=== PATIENT | female | born 1990 | race Caucasian/White ===

== ENCOUNTER 2016-12-17 21:49 | Outpatient (CLI) | payer OTHER | END 2016-12-17 21:50 | disposition critical access hospital (66) | LOC: EMS 21:49 | PROVIDERS: ATTEND Surgery | DX: R06.02 Shortness of breath (principal); R55 Syncope and collapse; R07.9 Chest pain, unspecified; R11.2 Nausea with vomiting, unspecified | CPT/HCPCS: A0425; A0429 ==

== ENCOUNTER 2016-12-17 22:09 | Emergency (ER) | payer OTHER ==
[2016-12-17] MEDS ORDERED: SODIUM CHLORIDE 0.9% 1,000 ML IV ONE (22:26)
[2016-12-17] MEDS ORDERED: LORazepam 2 MG/ML SYRINGE IVP STA (22:26)
--- NOTE | 2016-12-17 22:28 | ED Physician Documentation ---
PD HPI CHEST PAIN - Stated complaint Stated Complaint: SOA - Chief complaint Chief Complaint: General - History obtained from History obtained from: Patient, Family - History of Present Illness Timing - onset: How many hours ago (1) Timing - onset during: Rest Timing - duration: Hours (1) Timing - details: Abrupt onset Pain level max: 7 Pain level now: 7 Quality: Tightness, Sharp, Pain Location: Left chest Radiation: Other (non-radiating) Improved by: Nothing Worsened by: Inspiration Associated symptoms: Shortness of air, Diaphoresis, Feeling faint / dizzy, General Weakness. No: Nausea, Vomiting, Palpitations, Cough Similar symptoms before: Has not had sx before Recently seen: Clinic (being treated for a calf strain. Is on control. No immobilization or recent travel) Review of Systems Ten Systems: 10 systems reviewed and negative Constitutional: denies: Fever, Chills Nose: denies: Rhinorrhea / runny nose, Congestion Throat: denies: Sore throat Cardiac: reports: Chest pain / pressure Respiratory: reports: Dyspnea. denies: Cough, Hemoptysis GI: denies: Abdominal Pain, Nausea, Vomiting, Diarrhea : denies: Now EGA Skin: denies: Rash Musculoskeletal: denies: Neck pain, Back pain Neurologic: denies: Syncope, Headache PD PAST MEDICAL HISTORY - Past Medical History Past Medical History: No - Past Surgical History Past Surgical History: Yes Ortho: Spine surgery - Allergies Allergies/Adverse Reactions: Allergies Allergy/AdvReac Type Severity Reaction Status Date / Time morphine AdvReac Itching Verified 12/17/16 22:14 Penicillins AdvReac Itching Verified 12/17/16 22:14 - Social History Does the pt smoke?: No Smoking Status: Never smoker Does the pt drink ETOH?: Yes ETOH Use: Wine Does the pt have substance abuse?: No - Immunizations Immunizations are current?: No - POLST Patient has POLST: No PD ED PE NORMAL - Vitals Vital signs reviewed: Yes - General General: Alert and oriented X 3, Well developed/nourished - HEENT HEENT: PERRL, Moist mucous membranes - Neck Neck: Supple, no meningeal sign - Cardiac Cardiac: Other (tachycardic) - Respiratory Respiratory: No respiratory distress, Clear bilaterally - Abdomen Abdomen: Soft, Non tender, Non distended - Back Back: No spinal TTP - Derm Derm: Warm and dry, No rash - Extremities Extremities: Other (R calf tenderness.) - Neuro Neuro: Alert and oriented X 3 - Psych Psych: Normal mood, Normal affect Results - Vitals Vitals: Vital Signs - 24 hr 12/17/16 12/17/16 12/17/16 22:11 22:26 22:31 Temperature 36.0 C L Heart Rate 115 H 120 H Respiratory 20 23 Rate Blood Pressure 157/88 H 108/93 H O2 Saturation 96 94 12/17/16 12/17/16 12/18/16 23:28 23:45 00:49 Temperature Heart Rate 122 H 120 H 124 H Respiratory 25 H 20 21 Rate Blood Pressure 136/74 H 131/71 H 132/97 H O2 Saturation 95 96 98 12/18/16 00:53 Temperature 36.8 C Heart Rate 124 H Respiratory 18 Rate Blood Pressure 132/97 H O2 Saturation 97 Oxygen O2 Source Nasal cannula - EKG (time done) 2221 Rate: Rate (enter#) (115) Rhythm: Sinus tachycardia [place]: Normal Intervals: Normal [place] QRS: Normal Ischemia: Non specific changes Computer interpretation: Agree with computer - Labs Labs: Laboratory Tests 12/17/16 12/17/16 12/17/16 22:54 22:54 22:54 WBC 16.1 H RBC 4.25 Hgb 11.6 L Hct 36.1 L MCV 84.8 MCH 27.2 MCHC 32.1 RDW 14.6 Plt Count 286 MPV 8.2 Neut # 11.0 H Lymph # 3.9 H [place] # 0.8 Eos # 0.3 Baso # 0.1 Absolute Nucleated RBC 0.01 Nucleated RBCs 0.0 PT INR APTT Sodium 141 Potassium 3.5 Chloride 109 Carbon Dioxide 21 Anion Gap 11.0 BUN 11 Creatinine 0.7 Estimated GFR (MDRD) 101 Glucose 134 H Calcium 8.9 Total Bilirubin < 0.2 L AST 19 ALT 23 Alkaline Phosphatase 66 Troponin I 0.26 Total Protein 7.5 Albumin 3.5 Globulin 4.0 Albumin/Globulin Ratio 0.9 L Lipase 27 Serum HCG, Qual 12/17/16 12/17/16 22:54 22:54 WBC RBC Hgb Hct MCV MCH MCHC RDW Plt Count MPV Neut # Lymph # [place] # Eos # Baso # Absolute Nucleated RBC Nucleated RBCs PT 12.3 INR 1.1 APTT 22.6 L Sodium Potassium Chloride Carbon Dioxide Anion Gap BUN Creatinine Estimated GFR (MDRD) Glucose Calcium Total Bilirubin AST ALT Alkaline Phosphatase Troponin I Total Protein Albumin Globulin Albumin/Globulin Ratio Lipase Serum HCG, Qual NEGATIVE - Rads (name of study) CT pulmonary angiogram Radiology: Prelim report reviewed, EMP read contemporaneously, See rad report ( Large saddle embolus extending into all lobes of both lungs. Right heart strain. Suspect left thyroid nodule, somewhat poorly seen due to streak artifact. Recommend nonemergent sonographic follow-up.) PD MEDICAL DECISION MAKING - ED course Complexity details: reviewed results, re-evaluated patient, considered differential, d/w patient, d/w family, d/w sap ppm consultant ED course: Patient is a 26-year-old female who presents to the emergency department with difficulty breathing. Found to have a large saddle embolus. It involves all lobes of the lung. She was started on a heparin drip. Contacted Dr. Gamez, ICU at [facility] in [place] who graciously accepts in transfer. Patient was started on a heparin drip after a heparin bolus. She has no history of immobilization, recent travel or surgery. No family history of clotting disorders. She is on control, but does not smoke. Had been recently diagnosed with a calf strain of the right lower extremity 3 days ago. Likely that this represented a deep venous thrombosis. This document was made in part using voice recognition software. While efforts are made to proofread this document, sound alike and grammatical errors may occur. Departure - Departure Disposition: 02 Transfer Acute Care Hosp Clinical Impression: Sinus tachycardia, Hypoxia Pulmonary embolism Qualifiers: Pulmonary embolism type: saddle Chronicity: acute Acute cor pulmonale presence : with acute cor pulmonale Qualified Code(s): I26.02 - Saddle embolus of pulmonary artery with acute cor pulmonale Condition: Stable
[2016-12-17] MEDS ORDERED: LORazepam 2 MG/ML SYRINGE ONE (22:49)
[2016-12-17 23:06] LABS: BASOPHILS # (AUTO) 0.1 10^3/uL (0.0-0.1); BASOPHILS % (AUTO) 0.8 %; EOSINOPHILS # (AUTO) 0.3 10^3/uL (0.0-0.7); EOSINOPHILS % (AUTO) 1.7 %; HCT - HEMATOCRIT 36.1 % (37.0-47.0); HGB - HEMOGLOBIN 11.6 g/dL (12.0-16.0); LYMPHOCYTES # (AUTO) 3.9 10^3/uL (1.5-3.5); LYMPHOCYTES % (AUTO) 24.2 %; MEAN CORPUSCULAR HEMOGLOBIN 27.2 pg (27.0-31.0); MEAN CORPUSCULAR HGB CONC 32.1 g/dL (32.0-36.0); MEAN CORPUSCULAR VOLUME 84.8 fL (81.0-99.0); MEAN PLATELET VOLUME 8.2 fL (7.9-10.8); MONOCYTES # (AUTO) 0.8 10^3/uL (0.0-1.0); MONOCYTES % (AUTO) 4.8 %; NEUTROPHILS % (AUTO) 68.5 %; RED BLOOD COUNT 4.25 10^6/uL (4.20-5.40); RED CELL DISTRIBUTION WIDTH 14.6 % (12.0-15.0); UNCORRECTED WHITE BLOOD COUNT 16.1 x10^3/uL; WHITE BLOOD COUNT 16.1 x10^3/uL (4.8-10.8)
[2016-12-17 23:19] LABS: ALBUMIN/GLOBULIN RATIO 0.9 (1.0-2.2); BILIRUBIN,TOTAL < 0.2 mg/dL (0.2-1.0); BUN - BLOOD UREA NITROGEN 11 mg/dL (6-20); CALCIUM 8.9 mg/dL (8.5-10.3); CARBON DIOXIDE - CO2 21 mmol/L (21-32); CHLORIDE 109 mmol/L (101-111); CREATININE 0.7 mg/dL (0.4-1.0); GFR - MDRD 101 (>89); GLUCOSE 134 mg/dL (70-100); LIPASE 27 U/L (22-51); POTASSIUM 3.5 mmol/L (3.5-5.0); SODIUM 141 mmol/L (135-145); TOTAL PROTEIN 7.5 g/dL (6.7-8.2)
[2016-12-17] MEDS ORDERED: IOPAMIDOL-300 100 ML VIAL IVP ONE (23:36)
[2016-12-17] MEDS ORDERED: HEPARIN 5,000 UNIT/ML VIAL IVP ONE (23:38)
[2016-12-17] MEDS ORDERED: HEPARIN 25,000 UNITS/500 ML 500 ML IV STA (23:38)
--- NOTE | 2016-12-17 23:59 | CT Preliminary Report ---
Exam: CT Chest Angio (PE) IMPRESSION: 1. Large saddle embolus extending into all lobes of both lungs. 2. Right heart strain. 3. Suspect left thyroid nodule, somewhat poorly seen due to streak artifact. Recommend nonemergent so nographic follow-up. YASHA The above critical findings were discussed with Dr. Augustin by Dr. Haja Sheikh at 23:55 hrs on 12/17. SITE ID: [id number]
[2016-12-18] MEDS ORDERED: HEPARIN 25,000 UNITS/500 ML 500 ML IV ONE (00:01)
[2016-12-18] MEDS ORDERED: HEPARIN 5,000 UNIT/ML VIAL ONE (00:01)
--- NOTE | 2016-12-18 00:01 | CT Report ---
EXAM: CT ANGIOGRAM CHEST EXAM DATE: 12/17/2016 11:42 PM. CLINICAL HISTORY: Left chest pain and shortness of breath. COMPARISON: None. TECHNIQUE: Routine helical imaging was performed through the chest in the pulmonary arterial phase. I V Contrast: Nonionic. Reconstructions: Coronal 3-D MIP reconstructions.Sagittal and coronal. In accordance with CT protocol optimization, one or more of the following dose reduction techniques w ere utilized for this exam: automated exposure control, adjustment of mA and/or KV based on patient s ize, or use of iterative reconstructive technique. FINDINGS: Pulmonary Arteries: Diagnostic quality: Adequate through the segmental arteries. Large saddle embolus extending into all lobes of both lungs. Dilatation of the right ventricle with bowing of the interventricular septum toward the left, consist ent with right heart strain. Lungs/Pleura: No alveolar consolidation or pleural effusion. No pneumothorax. Mediastinum: Heart size is normal to upper normal. No lymphadenopathy seen. Thoracic Aorta: Unremarkable. Upper Abdomen: Fatty liver. Other: Enlarged left thyroid lobe with suspected nodule, but suboptimally seen due to streak artifact from spinal hardware. This measures approximately 2.5 x 2.1 cm. Recommend nonemergent sonographic fo llow-up. Scoliosis with extensive posterior metallic fusion in the spine. IMPRESSION: 1. Large saddle embolus extending into all lobes of both lungs. 2. Right heart strain. 3. Suspect left thyroid nodule, somewhat poorly seen due to streak artifact. Recommend nonemergent so nographic follow-up. RADIA The above critical findings were discussed with Dr. Augustin by Dr. Haja Sheikh at 23:55 hrs on 12/17. Referring Provider Line: [phone] SITE ID: [id number]
[2016-12-18 00:31] LABS: INR 1.1 (0.8-1.2); PT - PROTHROMBIN TIME 12.3 secs (9.9-12.6)
[2016-12-18 00:38] LABS: PARTIAL THROMBOPLASTIN TIME 22.6 secs (24.9-33.3)
[2016-12-18] MEDS ORDERED: LORazepam 2 MG/ML SYRINGE IVP STA (00:55)
[2016-12-18] MEDS ORDERED: LORazepam 2 MG/ML SYRINGE ONE (00:58)
[2016-12-18 02:14] VITALS: BP 135/86
[2016-12-18 02:36] LABS: BILIRUBIN,URINE NEGATIVE (NEGATIVE); PH,URINE 6.5 PH (5.0-7.5)
[2016-12-18 02:43] LABS: UA CHARGE (STRIP ONLY) YES; UR CULTURE IF IND NOT INDICATED
== END 2016-12-18 02:06 | disposition short-term general hospital (02) ==
LOC: EDUNIT# → ED 22:09 → SUPCPDRO 22:09 → ED 12-18 02:06
DX: I26.02 Saddle embolus of pulmonary artery with acute cor pulmonale (principal); R09.02 Hypoxemia; R00.0 Tachycardia, unspecified
CPT/HCPCS: 36415; 71275; 80053; 81003; 81241; 83690; 84484; 84703; 85025; 85303; 85610; 85730; 93005; 96361; 96365; 96366; 96375; 96376; 99285; J2060; Q9967; 81001; 87086

== ENCOUNTER 2016-12-18 01:51 | Outpatient (CLI) | payer OTHER | END 2016-12-18 01:52 | disposition short-term general hospital (02) | LOC: EMS 01:51 | PROVIDERS: ATTEND Surgery | DX: R06.02 Shortness of breath (principal) | CPT/HCPCS: A0425; A0426 ==

== ENCOUNTER 2017-01-10 16:02 | Outpatient (CLI) | payer OTHER | END 2017-01-10 16:03 | disposition short-term general hospital (02) | LOC: EMS 16:02 | PROVIDERS: ATTEND Surgery | DX: R07.9 Chest pain, unspecified (principal) | CPT/HCPCS: A0170; A0425; A0427 ==

== ENCOUNTER 2017-06-06 15:51 | Emergency (ER) | payer OTHER ==
--- NOTE | 2017-06-06 16:24 | ED Physician Documentation ---
PD HPI CHEST PAIN - Stated complaint Stated Complaint: SOA/HEART RACE - Chief complaint Chief Complaint: Resp - History obtained from History obtained from: Patient - History of Present Illness Timing - onset: Other (26-year-old woman with history of control related PE this year, otherwise was without identifiable cause and she says genetic testing for hypercoagulable states was negative. She was sent to [place] where per her description she had catheter guided TPA. Today about 45 minutes ago she developed intermittent palpitations like a brief rapid heartbeat lasting 10 seconds, was happening quite frequently and there was mild shortness of breath with it. She is now asymptomatic.) Review of Systems Constitutional: denies: Fever, Chills Nose: denies: Rhinorrhea / runny nose, Congestion Cardiac: reports: Chest pain / pressure, Palpitations. denies: Pedal edema, Calf pain Respiratory: reports: Dyspnea. denies: Cough PD PAST MEDICAL HISTORY - Past Surgical History Past Surgical History: Yes Ortho: Spine surgery - Present Medications Home Medications: Ambulatory Orders Medication Instructions Recorded Confirmed Cholecalciferol (Vitamin D3) 2,000 unit PO 06/06/17 [Vitamin D] Folic Acid 500mg 06/06/17 Magnesium Oxide 400 mg PO BID #60 tablet 06/06/17 Omeprazole [PriLOSEC] 10 mg PO DAILY 06/06/17 06/06/17 - Allergies Allergies/Adverse Reactions: Allergies Allergy/AdvReac Type Severity Reaction Status Date / Time morphine AdvReac Itching Verified 06/06/17 16:12 Penicillins AdvReac Itching Verified 06/06/17 16:12 - Social History Does the pt smoke?: No Smoking Status: Never smoker Does the pt drink ETOH?: Yes Does the pt have substance abuse?: No - Immunizations Immunizations are current?: No - POLST Patient has POLST: No PD ED PE NORMAL - Vitals Vital signs reviewed: Yes - General General: Alert and oriented X 3, No acute distress - Neck Neck: Supple, no meningeal sign, No bony TTP - Cardiac Cardiac: RRR, No murmur - Respiratory Respiratory: No respiratory distress, Clear bilaterally - Abdomen Abdomen: Normal bowel sounds, Soft, Non tender - Extremities Extremities: No edema, No calf tenderness / cord - Neuro Neuro: Alert and oriented X 3, Normal speech - Psych Psych: Normal mood, Normal affect Results - Vitals Vitals: Vital Signs - 24 hr 06/06/17 16:05 Temperature 36.9 C Heart Rate 73 Respiratory 16 Rate Blood Pressure 137/68 H O2 Saturation 95 Oxygen O2 Source Room air - EKG (time done) 1610 Rate: Rate (enter#) (83) Rhythm: NSR [place]: Normal Intervals: Normal [place] QRS: Normal Ischemia: Non specific changes (mild inferior RAE) Computer interpretation: Agree with computer - Labs Labs: Laboratory Tests 06/06/17 06/06/17 06/06/17 16:30 16:30 16:30 WBC 10.1 RBC 4.81 Hgb 12.7 Hct 39.1 MCV 81.2 MCH 26.4 L MCHC 32.5 RDW 16.6 H Plt Count 332 MPV 7.9 Neut # 5.3 Lymph # 3.8 H [place] # 0.7 Eos # 0.2 Baso # 0.1 Absolute Nucleated RBC 0.00 Nucleated RBC % 0.0 Sodium 138 Potassium 3.8 Chloride 105 Carbon Dioxide 23 Anion Gap 10.0 BUN 11 Creatinine 0.6 Estimated GFR (MDRD) 121 Glucose 79 Calcium 9.5 Total Bilirubin 0.6 AST 32 ALT 50 Alkaline Phosphatase 61 Troponin I < 0.04 Total Protein 8.1 Albumin 3.9 Globulin 4.2 Albumin/Globulin Ratio 0.9 L Lipase 26 Serum HCG, Qual Urine Color Urine Clarity Urine pH Ur Specific [place] Urine Protein Urine Glucose (UA) Urine Ketones Urine Occult Blood Urine Nitrite Urine Bilirubin Urine Urobilinogen Ur Leukocyte Esterase Ur Microscopic Review Urine Culture Comments 06/06/17 06/06/17 16:30 18:00 WBC RBC Hgb Hct MCV MCH MCHC RDW Plt Count MPV Neut # Lymph # [place] # Eos # Baso # Absolute Nucleated RBC Nucleated RBC % Sodium Potassium Chloride Carbon Dioxide Anion Gap BUN Creatinine Estimated GFR (MDRD) Glucose Calcium Total Bilirubin AST ALT Alkaline Phosphatase Troponin I Total Protein Albumin Globulin Albumin/Globulin Ratio Lipase Serum HCG, Qual NEGATIVE Urine Color YELLOW Urine Clarity CLEAR Urine pH 7.0 Ur Specific [place] <=1.005 Urine Protein NEGATIVE Urine Glucose (UA) NEGATIVE Urine Ketones NEGATIVE Urine Occult Blood NEGATIVE Urine Nitrite NEGATIVE Urine Bilirubin NEGATIVE Urine Urobilinogen 0.2 (NORMAL) Ur Leukocyte Esterase NEGATIVE Ur Microscopic Review NOT INDICATED Urine Culture Comments NOT INDICATED - Rads (name of study) CT Angio chest Radiology: EMP read contemporaneously (No large PE, fatty liver, chronic and incidental findings.) PD MEDICAL DECISION MAKING - ED course ED course: 26-year-old woman with palpitations, the history is most consistent with PVCs, given the history of PE a workup was begun for this and was grossly negative. While she was being observed in the emergency department she did have symptomatic PVCs on the monitor which matched her symptoms. Departure - Departure Disposition: 01 Home, Self Care Clinical Impression: PVCs (premature ventricular contractions) Chest pain Qualifiers: Chest pain type: unspecified Qualified Code(s): R07.9 - Chest pain, unspecified Condition: Good Record reviewed to determine appropriate education?: Yes Instructions: Premature Ventricular Contract About Prescriptions: Magnesium Oxide 400 mg PO BID #60 tablet Comments: Follow-up with your doctor, let him/her know that your EKG was unremarkable as was the CT of your chest. Your labs were okay 2. While being observed in the emergency department she had premature ventricular contractions, sometimes a few in a minute, but never back to back. These matched your symptoms. We are treating it today with magnesium supplementation. If this is not helpful you can talk to your doctor about a beta-allen. Return if worse. Your blood pressure was elevated today on check into the emergency department. This does not mean that you have hypertension, it is a common phenomenon to come to the emergency department and have elevated blood pressure. I recommend that you see your primary care physician within the week to have it rechecked when you are feeling better.
[2017-06-06] MEDS ORDERED: IOPAMIDOL-300 100 ML VIAL ONE (16:43)
[2017-06-06 16:46] LABS: BASOPHILS # (AUTO) 0.1 10^3/uL (0.0-0.1); EOSINOPHILS # (AUTO) 0.2 10^3/uL (0.0-0.7); EOSINOPHILS % (AUTO) 2.3 %; HCT - HEMATOCRIT 39.1 % (37.0-47.0); HGB - HEMOGLOBIN 12.7 g/dL (12.0-16.0); LYMPHOCYTES # (AUTO) 3.8 10^3/uL (1.5-3.5); LYMPHOCYTES % (AUTO) 37.4 %; MEAN CORPUSCULAR HEMOGLOBIN 26.4 pg (27.0-31.0); MEAN CORPUSCULAR HGB CONC 32.5 g/dL (32.0-36.0); MEAN CORPUSCULAR VOLUME 81.2 fL (81.0-99.0); MEAN PLATELET VOLUME 7.9 fL (7.9-10.8); MONOCYTES # (AUTO) 0.7 10^3/uL (0.0-1.0); MONOCYTES % (AUTO) 7.1 %; NEUTROPHILS # (AUTO) 5.3 10^3/uL (1.5-6.6); NEUTROPHILS % (AUTO) 52.2 %; RED BLOOD COUNT 4.81 10^6/uL (4.20-5.40); RED CELL DISTRIBUTION WIDTH 16.6 % (12.0-15.0); UNCORRECTED WHITE BLOOD COUNT 10.1 x10^3/uL; WHITE BLOOD COUNT 10.1 x10^3/uL (4.8-10.8)
[2017-06-06 16:57] LABS: ALBUMIN/GLOBULIN RATIO 0.9 (1.0-2.2); BILIRUBIN,TOTAL 0.6 mg/dL (0.2-1.0); CALCIUM 9.5 mg/dL (8.5-10.3); CREATININE 0.6 mg/dL (0.4-1.0); POTASSIUM 3.8 mmol/L (3.5-5.0); TOTAL PROTEIN 8.1 g/dL (6.7-8.2)
[2017-06-06] MEDS ORDERED: IOPAMIDOL-300 100 ML VIAL IVP ONE (17:52)
[2017-06-06 18:12] LABS: BILIRUBIN,URINE NEGATIVE (NEGATIVE); UA CHARGE (STRIP ONLY) YES; UR CULTURE IF IND NOT INDICATED
--- NOTE | 2017-06-06 18:22 | CT Preliminary Report ---
Exam: CT CHEST ANGIO (PE) IMPRESSION: 1. Suboptimal pulmonary angiogram; no large central lesion. 2. Unremarkable aorta. 3. Fatty liver and other chronic or incidental findings. [facility] SITE ID: [id number]
--- NOTE | 2017-06-06 18:24 | CT Report ---
EXAM: CT ANGIOGRAM CHEST EXAM DATE: 06/06/2017 05:58 PM. CLINICAL HISTORY: Palpitations, H/O PE, wait for preg. COMPARISON: 12/17/2016. TECHNIQUE: Routine helical imaging was performed through the chest in the pulmonary arterial phase. I V Contrast: 80 cc Isovue 300. Reconstructions: Sagittal, coronal, and 3-D MIP.Sagittal and coronal. In accordance with CT protocol optimization, one or more of the following dose reduction techniques w ere utilized for this exam: automated exposure control, adjustment of mA and/or KV based on patient s ize, or use of iterative reconstructive technique. FINDINGS: Pulmonary Arteries: Diagnostic quality: Suboptimal through the segmental arteries. Contrast is in the left side of the he art and aorta. No large central lesion. Cannot exclude emboli at the lobar level or below. RV/LV is within normal limits. There is no interventricular septal bowing. There is no reflux of cont rast material in the IVC. Lungs/Pleura: Clear. No effusion or pneumothorax. Mediastinum: Normal heart size. No pericardial effusion. No coronary artery calcifications. Left thyr oid mass sort a previous study. Thoracic Aorta: Well-opacified and unremarkable. Upper Abdomen: Hypoattenuated liver parenchyma. Small accessory spleen. Other: Extensive postoperative changes in the spine. IMPRESSION: 1. Suboptimal pulmonary angiogram; no large central lesion. 2. Unremarkable aorta. 3. Fatty liver and other chronic or incidental findings. [facility] Referring Provider Line: [phone] SITE ID: [id number]
[2017-06-06 18:39] VITALS: BP 139/58
== END 2017-06-06 18:42 | disposition home or self-care (01) ==
LOC: ED 15:51
DX: I49.3 Ventricular premature depolarization (principal); R07.9 Chest pain, unspecified; R03.0 Elevated blood-pressure reading, without diagnosis of hypertension; Z86.711 Personal history of pulmonary embolism
CPT/HCPCS: 36415; 71275; 80053; 81003; 83690; 84484; 84703; 85025; 93005; 99283; 99284; Q9967; 81001; 81025; 87086

== ENCOUNTER 2018-01-09 17:22 | Outpatient (CLI) | payer OTHER | END 2018-01-09 17:23 | disposition short-term general hospital (02) | LOC: EMS 17:22 | PROVIDERS: ATTEND Surgery | DX: R07.9 Chest pain, unspecified (principal); M79.661 Pain in right lower leg; M79.601 Pain in right arm | CPT/HCPCS: A0170; A0425; A0427 ==

== ENCOUNTER 2018-09-09 17:18 | Outpatient (CLI) | payer OTHER | END 2018-09-09 17:19 | disposition critical access hospital (66) | LOC: EMS 17:18 | PROVIDERS: ATTEND Surgery | DX: R07.9 Chest pain, unspecified (principal) | CPT/HCPCS: A0425; A0427 ==

== ENCOUNTER 2018-09-09 17:37 | Emergency (ER) | payer OTHER ==
[2018-09-09 18:59] LABS: BASOPHILS # (AUTO) 0.2 10^3/uL (0.0-0.1); BASOPHILS % (AUTO) 1.4 %; EOSINOPHILS # (AUTO) 0.2 10^3/uL (0.0-0.7); EOSINOPHILS % (AUTO) 2.3 %; HGB - HEMOGLOBIN 11.6 g/dL (12.0-16.0); LYMPHOCYTES # (AUTO) 3.6 10^3/uL (1.5-3.5); LYMPHOCYTES % (AUTO) 32.7 %; MEAN CORPUSCULAR HEMOGLOBIN 27.1 pg (27.0-31.0); MEAN CORPUSCULAR HGB CONC 32.5 g/dL (32.0-36.0); MEAN CORPUSCULAR VOLUME 83.3 fL (81.0-99.0); MEAN PLATELET VOLUME 8.5 fL (7.9-10.8); MONOCYTES # (AUTO) 0.6 10^3/uL (0.0-1.0); MONOCYTES % (AUTO) 5.2 %; NEUTROPHILS # (AUTO) 6.4 10^3/uL (1.5-6.6); NEUTROPHILS % (AUTO) 58.4 %; PLT - PLATELET COUNT 294 10^3/uL (130-450); RED BLOOD COUNT 4.27 10^6/uL (4.20-5.40); RED CELL DISTRIBUTION WIDTH 15.5 % (12.0-15.0)
[2018-09-09 19:10] LABS: ALBUMIN 3.5 g/dL (3.2-5.5); BILIRUBIN,TOTAL 0.4 mg/dL (0.2-1.0); CALCIUM 9.2 mg/dL (8.5-10.3); CREATININE 0.7 mg/dL (0.4-1.0); TOTAL PROTEIN 7.1 g/dL (6.7-8.2)
--- NOTE | 2018-09-09 19:15 | XRAY Report ---
Reason: chest pain Procedure Date: 09/09/2018 Accession Number: [id number] / [id number] Procedure: XR - Chest 1 View X-Ray CPT Code: 99907 FULL RESULT: EXAM: CHEST RADIOGRAPHY EXAM DATE: 09/09/2018 06:31 PM. CLINICAL HISTORY: Chest pain. COMPARISON: CHEST ANGIO 06/06/2017 5:38 PM. TECHNIQUE: 1 view. FINDINGS: Lungs/Pleura: No focal opacities evident. No pleural effusion. No pneumothorax. Mediastinum: Within exam limitations, the cardiomediastinal contour is normal. Other: Fernandes rods within the thoracic spine. IMPRESSION: No evidence for acute cardiothoracic process. [facility]
--- NOTE | 2018-09-09 19:50 | ED Physician Documentation ---
PD HPI URI - Stated complaint Stated Complaint: CP - Chief complaint Chief Complaint: Resp - History obtained from History obtained from: Patient - History of Present Illness Timing - onset: How many days ago (3) Timing duration: Days (3) Timing details: Gradual onset Pain level max: 5 Pain level now: 5 Severity Comments: mild Associated symptoms: Other (Right leg pain and swelling) Contributing factors: Other (Taking FSH and LH to promote ovulation) Improves by: Rest Worsened by: Other (Walking) Similar symptoms before: Other (DVT) Review of Systems Constitutional: reports: Reviewed and negative Eyes: reports: Reviewed and negative Ears: reports: Reviewed and negative Nose: reports: Reviewed and negative Throat: reports: Reviewed and negative Cardiac: reports: Reviewed and negative Respiratory: reports: Dyspnea GI: reports: Reviewed and negative : reports: Reviewed and negative Skin: reports: Reviewed and negative Musculoskeletal: reports: Other (Right calf pain) Neurologic: reports: Reviewed and negative Psychiatric: reports: Reviewed and negative Endocrine: reports: Reviewed and negative Immunocompromised: reports: Reviewed and negative PD PAST MEDICAL HISTORY - Past Medical History Cardiovascular: Deep vein thrombosis, Pulmonary embolism Respiratory: None Endocrine/Autoimmune: None GI: None SALES PERSON: None : None HEENT: None Psych: None Musculoskeletal: Scoliosis Derm: None - Past Surgical History Past Surgical History: Yes Ortho: Spine surgery - Present Medications Home Medications: Ambulatory Orders Medication Instructions Recorded Confirmed Esomeprazole Magnesium [Nexium] 20 mg PO 09/09/18 Letrozole [Femara] 09/09/18 - Allergies Allergies/Adverse Reactions: Allergies Allergy/AdvReac Type Severity Reaction Status Date / Time morphine AdvReac Itching Verified 09/09/18 17:40 Penicillins AdvReac Itching Verified 09/09/18 17:40 - Living Situation Living Situation: reports: With spouse/s.o. Living Arrangement: reports: At home - Social History Does the pt smoke?: No Smoking Status: Never smoker Does the pt drink ETOH?: Yes Does the pt have substance abuse?: No - Family History Family history: reports: Other (Reviewed and not pertinent) - Immunizations Immunizations are current?: No Immunizations: No immun - POLST Patient has POLST: No PD ED PE NORMAL - Vitals Vital signs reviewed: Yes - General General: Alert and oriented X 3, No acute distress - HEENT HEENT: PERRL - Neck Neck: Supple, no meningeal sign - Cardiac Cardiac: RRR, No murmur - Respiratory Respiratory: Clear bilaterally - Abdomen Abdomen: Normal bowel sounds, Soft, Non tender, Non distended - Derm Derm: Warm and dry - Extremities Extremities: No deformity, Other (Right calf tenderness) - Neuro Neuro: Alert and oriented X 3 - Psych Psych: Normal mood, Normal affect Results - Vitals Vitals: Vital Signs - 24 hr 09/09/18 09/09/18 09/09/18 17:38 19:20 19:51 Temperature 36.5 C Heart Rate 79 87 84 Respiratory 18 17 18 Rate Blood Pressure 170/104 H 154/75 H 156/83 H O2 Saturation 99 98 99 Oxygen O2 Source Room air - Labs Labs: Laboratory Tests 09/09/18 09/09/18 09/09/18 18:50 18:50 18:50 WBC 11.0 H RBC 4.27 Hgb 11.6 L Hct 35.5 L MCV 83.3 MCH 27.1 MCHC 32.5 RDW 15.5 H Plt Count 294 MPV 8.5 Neut # (Auto) 6.4 Lymph # (Auto) 3.6 H [place] # (Auto) 0.6 Eos # (Auto) 0.2 Baso # (Auto) 0.2 H Absolute Nucleated RBC 0.00 Nucleated RBC % 0.0 D-Dimer < 200.0 L Sodium 140 Potassium 3.8 Chloride 106 Carbon Dioxide 25 Anion Gap 9.0 BUN 13 Creatinine 0.7 Estimated GFR (MDRD) 100 Glucose 94 Calcium 9.2 Total Bilirubin 0.4 AST 21 ALT 32 Alkaline Phosphatase 57 Total Protein 7.1 Albumin 3.5 Globulin 3.6 Albumin/Globulin Ratio 1.0 Lipase 31 - Rads (name of study) DVT Scan Radiology: Final report received (WNL) PD MEDICAL DECISION MAKING - ED course Complexity details: reviewed results, re-evaluated patient, considered differential, d/w patient, d/w family ED course: 28-year-old female with history of DVT and PE presents with right calf pain and shortness of breath. D-dimer was negative and DVT ultrasound was negative. 2- tests makes any blood clot extremely unlikely at this time. Patient does have an incidental Pritchett's cyst on the right popliteal fossa.Patient discharged with conservative treatment and primary care follow-up with return precautions. Departure - Departure Clinical Impression: Right leg pain Bakers cyst Qualifiers: Laterality: right Qualified Code(s): M71.21 - Synovial cyst of popliteal space [Pritchett], right knee Condition: Stable Instructions: Luz ROBERTSON Popliteal Follow-Up: Your, PCP [Other] Discharge Date/Time: 09/09/18 20:29
--- NOTE | 2018-09-09 20:16 | Ultrasound Report ---
Reason: RLE Pain, history of DVT Procedure Date: 09/09/2018 Accession Number: [id number] / [id number] Procedure: US - Duplex Ext Veins Right CPT Code: FULL RESULT: EXAM: RIGHT LOWER EXTREMITY VENOUS ULTRASOUND EXAM DATE: 09/09/2018 07:29 PM. CLINICAL HISTORY: Right leg pain. History of deep venous thrombosis. COMPARISON: None. TECHNIQUE: Real-time sonographic vascular imaging was performed by the grade school teacher through the lower extremity utilizing both color-flow and Doppler spectral analysis. Multiple automotive leasing sales representative static images were saved for review. FINDINGS: Common Femoral Vein (CFV): Normal. CFV-GSV [place]: Normal. Profunda Femoral Vein (PFV): Normal. Femoral Vein (FV) Prox: Normal. Femoral Vein (FV) Mid: Normal. Femoral Vein (FV) Dist: Normal. Popliteal Vein: Normal. Posterior Tibial Veins: Normal. Peroneal Veins: Normal. Contralateral Side CFV: Normal. Other: A mild popliteal cyst measuring 4.0 x 2.0 x 2.5 cm is seen with a few small septations within. IMPRESSION: No evidence for deep venous thrombosis. Mild popliteal cyst seen. [facility]
[2018-09-09 20:37] VITALS: BP 134/79
== END 2018-09-09 20:29 | disposition home or self-care (01) ==
LOC: EDUNIT# → ED 17:37
DX: M79.661 Pain in right lower leg (principal); M79.89 Other specified soft tissue disorders; M71.21 Synovial cyst of popliteal space [Baker], right knee; R06.02 Shortness of breath; Z86.718 Personal history of other venous thrombosis and embolism; Z86.711 Personal history of pulmonary embolism
CPT/HCPCS: 36415; 71045; 80053; 83690; 85025; 85379; 93005; 99283

== ENCOUNTER 2019-11-21 13:03 | Emergency (ER) | payer BC, OTHER ==
[2019-11-21 13:11] VITALS: BP 148/90
[2019-11-21 13:32] LABS: BASOPHILS # (AUTO) 0.1 10^3/uL (0.0-0.1); BASOPHILS % (AUTO) 0.7 %; EOSINOPHILS # (AUTO) 0.3 10^3/uL (0.0-0.7); EOSINOPHILS % (AUTO) 2.9 %; HGB - HEMOGLOBIN 12.8 g/dL (12.0-16.0); LYMPHOCYTES # (AUTO) 3.5 10^3/uL (1.5-3.5); LYMPHOCYTES % (AUTO) 33.1 %; MEAN CORPUSCULAR HEMOGLOBIN 29.6 pg (27.0-31.0); MEAN CORPUSCULAR HGB CONC 32.4 g/dL (32.0-36.0); MEAN CORPUSCULAR VOLUME 91.2 fL (81.0-99.0); MEAN PLATELET VOLUME 10.1 fL (7.9-10.8); MONOCYTES # (AUTO) 0.5 10^3/uL (0.0-1.0); MONOCYTES % (AUTO) 5.1 %; NEUTROPHILS # (AUTO) 6.1 10^3/uL (1.5-6.6); NEUTROPHILS % (AUTO) 57.9 %; PLT - PLATELET COUNT 290 10^3/uL (130-450); RED BLOOD COUNT 4.33 10^6/uL (4.20-5.40); RED CELL DISTRIBUTION WIDTH 13.9 % (12.0-15.0); WHITE BLOOD COUNT 10.5 x10^3/uL (4.8-10.8)
--- NOTE | 2019-11-21 13:39 | ED Physician Documentation ---
PD HPI ABD PAIN - Stated complaint Stated Complaint: NAUSEA/VOMITING - Chief complaint Chief Complaint: Abd Pain - History obtained from History obtained from: Patient - History of Present Illness Timing - onset: How many months ago (1) Timing - details: Gradual onset, Still present Pain level now: 0 Quality: Cramping Location: Suprapubic, LLQ Associated symptoms: Nausea, Loss of appetite, Weight loss (5# over a month). No: Fever, Vomiting, Hematemesis, Diarrhea, Constipation, Melena, Hematochezia, Dysuria, Hematuria, Chest pain, Dizzy, Near syncope / syncope, Vaginal bleeding, Vaginal dc - Additional information Additional information: 29-year-old female comes in today with a chief complaint of having abdominal pain for a week with nausea no vomiting for a month. Last menstrual period was on October 14, 2019, prior to that her last menstrual period was 6 months previous. Patient states that she has a past medical history of polycystic ovarian syndrome, and menstrual cycles are always erratic anyway patient states that she has been off of her letrozole for least a year. She states that she is taking 5 test in the last month at home, and all of them are negative. She would like a blood test today to make sure that that is not was causing her nausea. She also states that she has had a decreased appetite, increased fatigue, 5 pound weight loss over the last month. She states that she was exposed to COVID-19 third week of September by 2 coworkers, she was tested and came back negative. She has been afebrile, has not lost her sense of smell, nor taste, nor had any cough. Review of Systems Constitutional: reports: Fatigue, Weight Loss (5# over a month) Ears: denies: Loss of hearing, Ear pain, Drainage/discharge, Tinnitus/ringing Nose: denies: Rhinorrhea / runny nose, Congestion, Sinus pressure / pain Throat: denies: Oral lesions / sores, Sore throat, Swollen tonsils Cardiac: denies: Chest pain / pressure, Palpitations, Pedal edema, Calf pain Respiratory: denies: Dyspnea, Cough, Hemoptysis, Wheezing GI: reports: Abdominal Pain, Nausea. denies: Abdominal Swelling, Vomiting, Constipation, Diarrhea, Hematemesis, Bloody / black stool : reports: LMP (10/14/2019 - first menstural cycle in six months. pt relates this is due to PCOS, she has erratic menstrual cycles for years.). denies: Dysuria, Frequency, Hesitancy, Incontinent, Hematuria, Discharge Skin: reports: Rash, Reviewed and negative Musculoskeletal: denies: Back pain, Extremity pain, Joint pain Neurologic: reports: Generalized weakness, Headache (chronic for the pt., related to atmospheric pressure changes.). denies: Focal weakness, Numbness, Difficulty speaking, Near syncope, Confused, Altered mental status Endocrine: reports: Polydypsia, Weight loss (5#). 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 : None HEENT: None Psych: None Musculoskeletal: Scoliosis Derm: None - Past Surgical History Past Surgical History: Yes Ortho: Spine surgery - Present Medications Home Medications: Ambulatory Orders Medication Instructions Recorded Confirmed Esomeprazole Magnesium [Nexium] 20 mg PO 09/09/18 Letrozole [Femara] 09/09/18 Ondansetron [Ondansetron Odt] 4 mg PO TID #20 tab.rapdis 11/21/19 - Allergies Allergies/Adverse Reactions: Allergies Allergy/AdvReac Type Severity Reaction Status Date / Time morphine AdvReac Itching Verified 11/21/19 13:11 Penicillins AdvReac Itching Verified 11/21/19 13:11 - Social History Does the pt smoke?: No Smoking Status: Never smoker Does the pt drink ETOH?: Yes Does the pt have substance abuse?: No - Immunizations Immunizations are current?: No Immunizations: No immun - POLST Patient has POLST: No PD ED PE NORMAL - General General: Alert and oriented X 3, No acute distress - HEENT HEENT: Atraumatic, PERRL, EOMI, Ears normal, Moist mucous membranes, Pharynx benign - Neck Neck: Supple, no meningeal sign, No adenopathy - Cardiac Cardiac: RRR, No murmur, No gallop - Respiratory Respiratory: No respiratory distress, Clear bilaterally - Abdomen Abdomen: Normal bowel sounds, Soft, Non distended, No organomegaly - Back Back: No CVA TTP - Derm Derm: Normal color, Warm and dry, No rash - Extremities Extremities: No deformity, No tenderness to palpate, Normal ROM s pain, No edema, No calf tenderness / cord - Neuro Neuro: Alert and oriented X 3, airport maintenance chief 2-12 intact Eye Opening: Spontaneous Motor: Obeys Commands Verbal: Oriented GCS Score: 15 PD ED PE EXPANDED - Abdomen Abdomen: LLQ (TTP) Results - Vitals Vitals: Vital Signs - 24 hr 11/21/19 13:07 Temperature 36.6 C Heart Rate 84 Respiratory 16 Rate Blood Pressure 148/90 H O2 Saturation 97 Oxygen O2 Source Room air - Labs Labs: Laboratory Tests 11/21/19 11/21/19 11/21/19 13:26 13:26 13:26 WBC 10.5 RBC 4.33 Hgb 12.8 Hct 39.5 MCV 91.2 MCH 29.6 MCHC 32.4 RDW 13.9 Plt Count 290 MPV 10.1 Neut # (Auto) 6.1 Lymph # (Auto) 3.5 [place] # (Auto) 0.5 Eos # (Auto) 0.3 Baso # (Auto) 0.1 Absolute Nucleated RBC 0.00 Nucleated RBC % 0.0 Sodium 137 Potassium 4.2 Chloride 106 Carbon Dioxide 26 Anion Gap 5.0 L BUN 15 Creatinine 0.8 Estimated GFR (MDRD) 85 L Glucose 88 Calcium 9.2 Total Bilirubin 0.6 AST 27 ALT 46 Alkaline Phosphatase 53 Total Protein 7.6 Albumin 4.0 Globulin 3.6 Albumin/Globulin Ratio 1.1 Lipase 39 TSH 1.89 Serum HCG, Qual Urine Color Urine Clarity Urine pH Ur Specific [place] Urine Protein Urine Glucose (UA) Urine Ketones Urine Occult Blood Urine Nitrite Urine Bilirubin Urine Urobilinogen Ur Leukocyte Esterase Ur Microscopic Review Urine Culture Comments Urine HCG, Qual 11/21/19 11/21/19 11/21/19 13:26 13:48 13:48 WBC RBC Hgb Hct MCV MCH MCHC RDW Plt Count MPV Neut # (Auto) Lymph # (Auto) [place] # (Auto) Eos # (Auto) Baso # (Auto) Absolute Nucleated RBC Nucleated RBC % Sodium Potassium Chloride Carbon Dioxide Anion Gap BUN Creatinine Estimated GFR (MDRD) Glucose Calcium Total Bilirubin AST ALT Alkaline Phosphatase Total Protein Albumin Globulin Albumin/Globulin Ratio Lipase TSH Serum HCG, Qual NEGATIVE Urine Color YELLOW Urine Clarity CLEAR Urine pH 5.5 Ur Specific [place] >=1.030 H >=1.030 H Urine Protein NEGATIVE Urine Glucose (UA) NEGATIVE Urine Ketones NEGATIVE Urine Occult Blood TRACE-INTA Urine Nitrite NEGATIVE Urine Bilirubin NEGATIVE Urine Urobilinogen 0.2 (NORMAL) Ur Leukocyte Esterase NEGATIVE Ur Microscopic Review NOT INDICATED Urine Culture Comments NOT INDICATED Urine HCG, Qual NEGATIVE PD MEDICAL DECISION MAKING - ED course Complexity details: reviewed results, re-evaluated patient, considered differential, d/w patient ED course: Patient's labs all came back normal today. She is not , she does not have an elevated TSH. Patient is comfortable going home with some antiemetics, and follow-up with her PCP in 7 to 10 days should her symptoms not resolved. Departure - Departure Disposition: , Self Care Clinical Impression: Nausea Condition: Good Instructions: ED Nausea Vomiting Prescriptions: Ondansetron [Ondansetron Odt] 4 mg PO TID #20 tab.ramy Comments: All your lab work came back as normal today, including your TSH level. I have given you a prescription for some ondansetron (Zofran) for nausea. You can take 1 -2 tabs up to 3 times a day. If your nausea persists, or you develop v omiting, fevers, diarrhea you are welcome to return to the ED, otherwise follow- up with your primary care physician next 7 to 10 days.
[2019-11-21 13:45] LABS: ALBUMIN/GLOBULIN RATIO 1.1 (1.0-2.2); BILIRUBIN,TOTAL 0.6 mg/dL (0.2-1.0); CALCIUM 9.2 mg/dL (8.5-10.3); CREATININE 0.8 mg/dL (0.4-1.0); TOTAL PROTEIN 7.6 g/dL (6.7-8.2)
[2019-11-21 13:55] LABS: BILIRUBIN,URINE NEGATIVE (NEGATIVE); CLARITY,URINE CLEAR (CLEAR); GLUCOSE, URINE (UA) NEGATIVE (NEGATIVE); KETONES,URINE (UA) NEGATIVE (NEGATIVE); LEUKOCYTE ESTERASE, URINE NEGATIVE (NEGATIVE); NITRITE,URINE NEGATIVE (NEGATIVE); OCCULT BLOOD,URINE TRACE-INTA (NEGATIVE); PH,URINE 5.5 PH (5.0-7.5); PROTEIN,URINE NEGATIVE (NEGATIVE); UROBILINOGEN,URINE 0.2 (NORMAL) E.U./dL (NORMAL)
[2019-11-21 13:56] LABS: HCG UR QUAL NEGATIVE
[2019-11-21 14:04] LABS: HCG,QUALITATIVE BLOOD NEGATIVE
== END 2019-11-21 14:39 | disposition home or self-care (01) ==
LOC: ED 13:03
DX: R10.32 Left lower quadrant pain (principal); R11.0 Nausea
CPT/HCPCS: 36415; 80053; 81001; 81003; 81025; 83690; 84443; 84703; 85025; 87086; 99283; 99284

== ENCOUNTER 2022-09-13 13:12 | Emergency (ER) | payer BC, OTHER ==
[2022-09-13 13:52] LABS: HCG UR QUAL NEGATIVE
[2022-09-13 14:02] LABS: BASOPHILS # (AUTO) 0.1 10^3/uL (0.0-0.1); BASOPHILS % (AUTO) 0.7 %; EOSINOPHILS # (AUTO) 0.3 10^3/uL (0.0-0.7); EOSINOPHILS % (AUTO) 3.1 %; HCT - HEMATOCRIT 37.5 % (37.0-47.0); HGB - HEMOGLOBIN 11.8 g/dL (12.0-16.0); LYMPHOCYTES # (AUTO) 2.8 10^3/uL (1.5-3.5); MEAN CORPUSCULAR HEMOGLOBIN 27.6 pg (27.0-31.0); MEAN CORPUSCULAR HGB CONC 31.5 g/dL (32.0-36.0); MEAN CORPUSCULAR VOLUME 87.6 fL (81.0-99.0); MONOCYTES # (AUTO) 0.5 10^3/uL (0.0-1.0); MONOCYTES % (AUTO) 5.3 %; NEUTROPHILS # (AUTO) 5.2 10^3/uL (1.5-6.6); NEUTROPHILS % (AUTO) 58.7 %; PLT - PLATELET COUNT 309 10^3/uL (130-450); RED BLOOD COUNT 4.28 10^6/uL (4.20-5.40); RED CELL DISTRIBUTION WIDTH 14.6 % (12.0-15.0); WHITE BLOOD COUNT 8.8 x10^3/uL (4.8-10.8)
[2022-09-13 14:19] LABS: ALBUMIN/GLOBULIN RATIO 1.1 (1.0-2.2); BILIRUBIN,TOTAL 0.3 mg/dL (0.2-1.0); CALCIUM 9.4 mg/dL (8.5-10.3); CREATININE 0.7 mg/dL (0.4-1.0); POTASSIUM 3.6 mmol/L (3.5-5.0); TOTAL PROTEIN 7.8 g/dL (6.7-8.2)
--- NOTE | 2022-09-13 16:01 | ED Physician Documentation ---
PD HPI FEMALE - Stated complaint Stated Complaint: DIZZY,HEADACHE, HEAVY PERIOD - Chief complaint Chief Complaint: Abd Pain - History obtained from History obtained from: Patient - Additional information Additional information: 32-year-old woman who is 4 months after an emergency for preeclampsia. She has not had a menses since her delivery and is not breast- feeding. Menses started a few days ago and is very heavy soaking through a pad every 45 minutes. 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 : None HEENT: None Psych: None Musculoskeletal: Scoliosis Derm: None - Past Surgical History Past Surgical History: Yes Ortho: Spine surgery - Present Medications Home Medications: Ambulatory Orders Medication Instructions Recorded Confirmed Esomeprazole Magnesium [Nexium] 20 mg PO 09/09/18 Letrozole [Femara] 09/09/18 Ondansetron [Ondansetron Odt] 4 mg PO TID #20 tab.rapdis 11/21/19 Medroxyprogesterone Acetate 2 tab PO TID 7 Days tablet 09/13/22 [Provera] - Allergies Allergies/Adverse Reactions: Allergies Allergy/AdvReac Type Severity Reaction Status Date / Time morphine AdvReac Itching Verified 09/13/22 13:33 Penicillins AdvReac Itching Verified 09/13/22 13:33 tramadol AdvReac Emesis Verified 09/13/22 13:33 - Social History Does the pt smoke?: No Smoking Status: Never smoker Does the pt drink ETOH?: Yes Does the pt have substance abuse?: No - Immunizations Immunizations are current?: No Immunizations: No immun - POLST Patient has POLST: No PD ED PE NORMAL - Vitals Vital signs reviewed: Yes - General General: Alert and oriented X 3, No acute distress - Abdomen Abdomen: Normal bowel sounds, Soft, Non tender - Neuro Neuro: Alert and oriented X 3, Normal speech Results - Vitals Vitals: Vital Signs - 24 hr 09/13/22 09/13/22 09/13/22 13:29 16:04 16:48 Temperature 36.6 C Heart Rate 65 62 65 Respiratory 16 18 18 Rate Blood Pressure 149/69 H 142/77 H 137/79 H O2 Saturation 96 100 100 Oxygen O2 Source Room air - Labs Labs: Laboratory Tests 09/13/22 09/13/22 09/13/22 13:30 13:50 13:50 WBC 8.8 RBC 4.28 Hgb 11.8 L Hct 37.5 MCV 87.6 MCH 27.6 MCHC 31.5 L RDW 14.6 Plt Count 309 MPV 10.0 Neut # (Auto) 5.2 Lymph # (Auto) 2.8 [place] # (Auto) 0.5 Eos # (Auto) 0.3 Baso # (Auto) 0.1 Absolute Nucleated RBC 0.00 Nucleated RBC % 0.0 Sodium Potassium Chloride Carbon Dioxide Anion Gap BUN Creatinine Estimated GFR (MDRD) Glucose Calcium Total Bilirubin AST ALT Alkaline Phosphatase Total Protein Albumin Globulin Albumin/Globulin Ratio Lipase Urine HCG, Qual NEGATIVE Blood Type A POSITIVE Blood Type Recheck Antibody Screen NEGATIVE 09/13/22 09/13/22 13:50 14:18 WBC RBC Hgb Hct MCV MCH MCHC RDW Plt Count MPV Neut # (Auto) Lymph # (Auto) [place] # (Auto) Eos # (Auto) Baso # (Auto) Absolute Nucleated RBC Nucleated RBC % Sodium 138 Potassium 3.6 Chloride 105 Carbon Dioxide 25 Anion Gap 8.0 BUN 13 Creatinine 0.7 Estimated GFR (MDRD) 97 Glucose 91 Calcium 9.4 Total Bilirubin 0.3 AST 18 ALT 33 Alkaline Phosphatase 47 Total Protein 7.8 Albumin 4.0 Globulin 3.8 Albumin/Globulin Ratio 1.1 Lipase 32 Urine HCG, Qual Blood Type Blood Type Recheck A POSITIVE Antibody Screen PD Medical Decision Making - ED course Complexity details: reviewed results (CBC reviewed with maybe borderline anemia, CMP reviewed and normal. Urine test reviewed and negative.) ED course: 32-year-old woman with very heavy menses, her first since a 4 months ago. 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 Case was discussed by phone with Dr. Sofía Ravi given this and she recommended Provera only pending follow-up. Departure - Departure Disposition: 01 Home, Self Care Clinical Impression: Menorrhagia Condition: Good Record reviewed to determine appropriate education?: Yes Instructions: ED Bleeding Menstrual Heavy Follow-[facility]: [facility] [Provider Group] Prescriptions: Medroxyprogesterone Acetate [Provera] 2 tab PO TID 7 Days tablet Comments: Follow-up with your el teacher later this week, alternatively you can follow- up with the women's office listed on this form.. Return for new or worsening symptoms. Discharge Date/Time: 09/13/22 16:48
[2022-09-13 16:49] VITALS: BP 137/79
== END 2022-09-13 16:48 | disposition home or self-care (01) ==
LOC: ED 13:12
DX: N92.0 Excessive and frequent menstruation with regular cycle (principal)
CPT/HCPCS: 36415; 80053; 81025; 83690; 85025; 86850; 86900; 86901; 99283; 99284; A9270; 80048

== ENCOUNTER 2023-08-19 15:15 | Emergency (ER) | payer BC ==
--- NOTE | 2023-08-19 15:29 | ED Physician Documentation ---
PD HPI CHEST PAIN - Stated complaint Stated Complaint: CP/SOA/DIZZY - Chief complaint Chief Complaint: General - History obtained from History obtained from: Patient - History of Present Illness Timing - onset: How many weeks ago (1 1/2) Timing - onset during: Light activity Timing - duration: Weeks (has had fatigue, cough, dyspnea, and aches for about 1 1/2 weeks. Seen ER 5 days ago with it, as cough had increased. Rx Zpack and prednisone 5 days. Pt states not improved. With some NVD last night into this morning. Feeling lightheaded at times when coughing.) Timing - details: Gradual onset, Still present, Waxing and waning Quality: Sharp (with coughing, and some pain in lower costal muscles with cough.) Location: Substernal Worsened by: Exertion Associated symptoms: Shortness of air, Nausea, Vomiting, Feeling faint / dizzy, Cough. No: Palpitations Recently seen: Clinic (seen OB clinc in [place] regular visit as is high risk so referred to [place]. Is on Lovenox due to prior PE with . Hs had HTN in first child. BP being watched regularly (Pt states has not been taking it daily). She states her OB has given guideline of SBP of 155 being cutoff.) Review of Systems Constitutional: denies: Fever, Chills Nose: reports: Congestion Throat: denies: Sore throat Cardiac: reports: Chest pain / pressure (with coughing). denies: Palpitations, Pedal edema, Calf pain Respiratory: reports: Dyspnea, Cough, Wheezing Skin: denies: Rash, Lesions PD PAST MEDICAL HISTORY - Past Medical History Past Medical History: Yes Cardiovascular: Hypertension, Deep vein thrombosis, Pulmonary embolism (in prior .) Respiratory: None Neuro: Migraines Endocrine/Autoimmune: None GI: GERD MANAGER DISH: Other : None HEENT: None Psych: None Musculoskeletal: Scoliosis Derm: None - Past Surgical History Past Surgical History: Yes General: Appendectomy Ortho: Spine surgery /MANAGER DISH: section Cardiovascular: Other - Present Medications Home Medications: Ambulatory Orders Medication Instructions Recorded Confirmed Albuterol Sulf [Ventolin Hfa 1 - 2 puffs INH Q4HR PRN #1 each 08/15/23 08/19/23 Inhaler] Enoxaparin [Lovenox] 40 mg SUBQ Q24H 08/15/23 08/19/23 Famotidine 40 mg PO HS 08/15/23 08/19/23 NIFEdipine [Nifedipine ER] 30 mg PO DAILY 08/15/23 08/19/23 Ondansetron [Ondansetron Odt] 4 mg PO TID PRN 08/15/23 08/19/23 Diphenoxylate/Atropine [Lomotil] 1 each PO TID PRN #6 tablet 08/19/23 cefuroxime axetiL [Ceftin] 250 mg PO BID #10 tablet 08/19/23 dexAMETHasone [Decadron] 4 mg PO DAILY #5 tablet 08/19/23 - Allergies Allergies/Adverse Reactions: Allergies Allergy/AdvReac Type Severity Reaction Status Date / Time morphine AdvReac Itching Verified 08/15/23 10:02 Penicillins AdvReac Itching Verified 08/15/23 10:02 tramadol AdvReac Emesis Verified 08/15/23 10:02 - Social History Does the pt smoke?: No Smoking Status: Never smoker Does the pt drink ETOH?: No Does the pt have substance abuse?: No - Immunizations Immunizations are current?: No Immunizations: No immun - POLST Patient has POLST: No PD ED PE NORMAL - Vitals Vital signs reviewed: Yes - General General: Alert and oriented X 3, No acute distress, Well developed/nourished - HEENT HEENT: Pharynx benign - Neck Neck: Supple, no meningeal sign, No adenopathy - Cardiac Cardiac: RRR, No murmur - Respiratory Respiratory: No respiratory distress. No: Clear bilaterally (scattered expiratory wheezing without coarse sounds. ) - Abdomen Abdomen: Soft, Non tender, Other (gravid with fundux above the umbilicus c/w dates approx 24 wks. ) - Derm Derm: Normal color, Warm and dry - Extremities Extremities: No edema, No calf tenderness / cord - Neuro Neuro: Alert and oriented X 3, No motor deficit, Normal speech Results - Vitals Vitals: Vital Signs - 24 hr 08/19/23 08/19/23 08/19/23 15:22 16:08 16:11 Temperature 36.8 C Heart Rate 93 94 89 Respiratory 18 22 20 Rate Blood Pressure 145/83 H 136/82 H O2 Saturation 99 100 Oxygen O2 Source Room air - Labs Labs: Laboratory Tests 08/19/23 15:57 Nasal Adenovirus (PCR) NOT DETECTED Nasal B. parapertussis DNA (PCR) NOT DETECTED Nasal Coronavir 229E PCR NOT DETECTED Nasal Coronavir HKU1 PCR NOT DETECTED Nasal Coronavir NL63 PCR NOT DETECTED Nasal Coronavir OC43 PCR NOT DETECTED Nasal Enterovir/Rhinovir PCR NOT DETECTED Nasal Influenza B PCR NOT DETECTED Nasal Influenza A PCR NOT DETECTED Nasal Parainfluen 1 PCR NOT DETECTED Nasal Parainfluen 2 PCR NOT DETECTED Nasal Parainfluen 3 PCR NOT DETECTED Nasal Parainfluen 4 PCR NOT DETECTED Nasal RSV (PCR) NOT DETECTED Nasal B.pertussis DNA PCR NOT DETECTED Nasal C.pneumoniae (PCR) NOT DETECTED Marvin Human Metapneumo PCR NOT DETECTED Nasal M.pneumoniae (PCR) NOT DETECTED Nasal SARS-CoV-2 (PCR) NOT DETECTED PD Medical Decision Making - ED course Complexity details: reviewed old records (prior ED visit for similar syptoms (cough/dyspena/wheezing) 5 days ago. ), considered differential (is having dyspnea and some chest pain related to persisting bronchitis symptoms with cough and wheezing. Just finished 5 day course Zpacka nd prednisone without improvement. Now also nausea and vomiting and large episode diarrhea. ), d/w patient Departure - Departure Disposition: 01 Home, Self Care Clinical Impression: Bronchitis, Nausea vomiting and diarrhea Qualifiers: Weeks of gestation: 24 weeks Qualified Code(s): Z3A.24 - 24 weeks gestation of Dyspnea Qualifiers: Dyspnea type: shortness of breath Qualified Code(s): R06.02 - Shortness of breath Condition: Stable Record reviewed to determine appropriate education?: Yes Prescriptions: cefuroxime axetiL [Ceftin] 250 mg PO BID #10 tablet dexAMETHasone [Decadron] 4 mg PO DAILY #5 tablet Diphenoxylate/Atropine [Lomotil] 1 each PO TID PRN #6 tablet PRN Reason: Diarrhea Comments: Continue with your usual medications. Add ondansetron/Zofran if needed for nausea and he states you have some of this at home. For the diarrhea in the short-term you can use Lomotil tablets which in referencing [employer] is safe in the second trimester. It does not want to be used near term. Frequent fluids and stay well-hydrated. For your cough I would suggest using your albuterol inhaler 2 puffs 3-4 times daily regularly for the next several days to week to help with breathing and reduce cough. We can change antibiotic to cefuroxime twice daily for 5 days for potential bacterial component of the bronchitis. Your lung sounds are generally clear without indication of pneumonia. You do have expiratory wheezing so the inhaler will be helpful. If you are not finding improvement over the next couple of days then finish out those treatments. If not well improving, I would consider adding another short course of steroid, Decadron 4 mg daily for 5 days. Check your blood pressures at home once or twice daily over the next several days to be sure you are in the right range. It may be affected by the illness or medications. We did do The viral respiratory panel to see if you have a new illness accounting for some of your urinary symptoms. The result will be available in a couple of hours likely. We can call you with positive results. [facility] can also [email or web address] I sent your prescriptions to the [facility] pharmacy. Forms: PCP List Discharge Date/Time: 08/19/23 16:46
[2023-08-19] MEDS: ONDANSETRON ODT 4 MG TABLET TL STA (16:02)
[2023-08-19] MEDS: DIPHENOX/ATROPINE 2.5/0.025 MG TABLET PO STA (16:02)
[2023-08-19] MEDS: cefuroxime axetiL 250 MG TABLET PO STA (16:02)
[2023-08-19] MEDS: ALBUTEROL NEB 2.5 MG/3 ML INH STA (16:04)
[2023-08-19 16:12] VITALS: BP 136/82; O2SAT 100
[2023-08-19 17:03] LABS: B. PARAPERTUSSIS- RESP PCR PAN NOT DETECTED; B. PERTUSSIS- RESP PCR PANEL NOT DETECTED; C. PNEUMONIAE- RESP PCR PANEL NOT DETECTED; CORONAVIRUS 229E-RESP PCR NOT DETECTED; CORONAVIRUS HKU1-RESP PCR NOT DETECTED; CORONAVIRUS NL63-RESP PCR NOT DETECTED; CORONAVIRUS OC43-RESP PCR NOT DETECTED; HUMAN METAPNEUMOVIRUS NOT DETECTED; INFLUENZA A- RESP PCR PANEL NOT DETECTED; INFLUENZA B - RESP PCR PANEL NOT DETECTED; M. PNEUMONIAE- RESP PCR PANEL NOT DETECTED; PARAINFLUENZA VIRUS 1 NOT DETECTED; PARAINFLUENZA VIRUS 2 NOT DETECTED; PARAINFLUENZA VIRUS 3 NOT DETECTED; PARAINFLUENZA VIRUS 4 NOT DETECTED; RHINOVIRUS/ENTEROVIRUS NOT DETECTED; RSV- RESP PCR PANEL NOT DETECTED; SARS-CoV-2 -RESP PCR PANEL NOT DETECTED
== END 2023-08-19 16:46 | disposition home or self-care (01) ==
LOC: ED 15:15
DX: O21.2 Late vomiting of pregnancy (principal); Z3A.24 24 weeks gestation of pregnancy; O99.512 Diseases of the respiratory system complicating pregnancy, second trimester; J40 Bronchitis, not specified as acute or chronic; R06.02 Shortness of breath; O26.892 Other specified pregnancy related conditions, second trimester; R19.7 Diarrhea, unspecified; O10.912 Unspecified pre-existing hypertension complicating pregnancy, second trimester; Z86.711 Personal history of pulmonary embolism; Z79.01 Long term (current) use of anticoagulants; Z79.899 Other long term (current) drug therapy
CPT/HCPCS: 87633; 94640; 99283; 99284; A9270; Q0162